=== PATIENT | male | born 1980 | race Caucasian/White ===

== ENCOUNTER → 2018-08-29 | Outpatient (CLI) | payer OTHER ==
--- NOTE | 2018-08-30 11:28 | ECHOF ---
Referral Reason:S06.0X9 Concussion with loss of consciousness of MEASUREMENTS -------- HEIGHT: 165.1 cm WEIGHT: 74.8 kg BP: 122/85 RVIDd: 2.6 cm (< 3.3) IVSd: 1.2 cm (0.6 - 1.1) LVIDd: 4.6 cm (3.9 - 5.3) LVPWd: 1.0 cm (0.6 - 1.1) IVSs: 1.6 cm LVIDs: 3.4 cm LVPWs: 1.5 cm LA Diam: 3.5 cm (2.7 - 3.8) LAESV Index (A-L): 23.77 ml/m Ao Diam: 3.8 cm (2.0 - 3.7) AV Cusp: 2.6 cm (1.5 - 2.6) MV EXCURSION: 21.345 mm (> 18.000) MV EF SLOPE: 183 mm/s (70 - 150) EPSS: 0.3 cm MV E Luke: 0.65 m/s MV DecT: 196 ms MV A Luke: 0.50 m/s MV E/A Ratio: 1.29 FINDINGS -------- Sinus rhythm. This was a technically excellent study. The left ventricular size is normal. There is borderline concentric left ventricular hypertrophy. Overall left ventricular systolic function is low-normal with, an EF between 50 - 55 %. The right ventricle is normal in size. Normal LA size by volume 22+/-6 ml/m2. The right atrium is normal in size. The aortic valve is trileaflet and appears structurally normal. The mitral valve is normal. The tricuspid valve appears structurally normal. There is no pulmonic regurgitation present. The aortic root is dilated measuring 3.8cm. Normal inferior vena cava with normal inspiratory collapse consistent with estimated right atrial pre ssure of 5 mmHg. The inferior vena cava is mildly dilated. There is no pericardial effusion. CONCLUSIONS -------- 1. Sinus rhythm. 2. This was a technically excellent study. 3. The left ventricular size is normal. 4. There is borderline concentric left ventricular hypertrophy. 5. Overall left ventricular systolic function is low-normal with, an EF between 50 - 55 %. 6. The right ventricle is normal in size. 7. Normal LA size by volume 22+/-6 ml/m2. 8. The right atrium is normal in size. 9. The aortic valve is trileaflet and appears structurally normal. 10. The mitral valve is normal. 11. The tricuspid valve appears structurally normal. 12. There is no pulmonic regurgitation present. 13. The aortic root is dilated measuring 3.8cm. 14. Normal inferior vena cava with normal inspiratory collapse consistent with estimated right atrial pressure of 5 mmHg. 15. The inferior vena cava is mildly dilated. 16. There is no pericardial effusion. [employer] SUPERVISOR: Catarina Fournier RDCS
== END | disposition home or self-care (01) ==
LOC: RADECHMAIN 10:40
PROVIDERS: ATTEND Internal Medicine
DX: S06.0X9S Concussion with loss of consciousness of unspecified duration, sequela (principal)
CPT/HCPCS: 93306